=== PATIENT | male | born 1965 | race Caucasian/White ===

== ENCOUNTER 2022-08-13 07:24 | Day surgery (SDC) | payer BC ==
[2022-08-05 15:25] LABS: BASOPHILS # (AUTO) 0.1 X10'3 (0-0.2); BASOPHILS % (AUTO) 1.2 % (0-1); EOSINOPHILS # (AUTO) 0.5 X10'3 (0-0.9); EOSINOPHILS % (AUTO) 5.6 % (0-6); LYMPHOCYTES # (AUTO) 0.8 X10'3 (1.1-4.8); LYMPHOCYTES % (AUTO) 9.2 % (21-51); MEAN CORPUSCULAR HEMOGLOBIN 28.2 PG (27.0-31.0); MEAN CORPUSCULAR HGB CONC 32.8 g/dL (33.0-36.5); MEAN PLATELET VOLUME 8.6 FL (7.4-10.4); MONOCYTES # (AUTO) 0.8 X10'3 (0-0.9); MONOCYTES % (AUTO) 8.8 % (2-12); NEUTROPHILS # (AUTO) 6.7 X10'3 (1.8-7.7); NEUTROPHILS % (AUTO) 75.2 % (42-75); PRE OP HEMATOCRIT 44.6 % (42.0-52.0); PRE OP HEMOGLOBIN 14.6 g/dL (14.0-17.9); PRE OP PLATELET COUNT 216 X10'3 (140-440); RED BLOOD COUNT 5.19 X10'6 (4.70-6.10); RED CELL DISTRIBUTION WIDTH 15.4 % (11.5-14.5)
[2022-08-05 15:42] LABS: ALBUMIN 3.2 G/DL (3.4-5.0); ALBUMIN/GLOBULIN RATIO 0.9 (1.1-1.5); ALKALINE PHOSPHATASE 123 IU/L (46-116); BLOOD UREA NITROGEN 50 MG/DL (7-18); BUN/CREATININE RATIO 24.6 (10.0-20.0); CALCIUM 8.8 MG/DL (8.5-10.1); CHLORIDE 107 MMOL/L (99-107); CREATININE 2.03 MG/DL (0.60-1.10); PRE OP ALT 30 U/L (30-65); PRE OP ANION GAP 10 (8-16); PRE OP AST 27 U/L (10-37); PRE OP BILIRUB, TOTAL 0.5 MG/DL (0.0-1.0); PRE OP GLUCOSE 112 MG/DL (70-104); PRE OP POTASSIUM 4.7 MMOL/L (3.4-5.1); PRE OP SODIUM 144 MMOL/L (135-145); TOTAL PROTEIN 6.7 G/DL (6.4-8.2); eGFR 34 ML/MIN
[~2022-08-13] VITALS: Ht 167.6 cm; Wt 148.2 kg
[~2022-08-13 07:24] MED LIST: APIX5TAB3 PO; CARV25TA3 PO; DOCUMENT DATE & TIME OF BETA-BLOCKER PO ONE; FURO80TA3 PO; INSU100V13 SQ; POTA-366 PO; SACU1TAB4 PO; ceFAZolin inj. 3,000 MG in normal saline 100ml IV soln 100 ML IV ONE; famotidine 20mg tablet PO ONE; ringers solution, lacted 1,000 ML IV SCH
[2022-08-13 07:30] VITALS: BP 126/80
[2022-08-13] MEDS ORDERED: labetalol 20mg/4ml (5mg/ml) syringe IV PRN (09:25)
[2022-08-13] MEDS ORDERED: meperidine/PF 25mg/ml syringe IV PRN ×3 (09:25)
[2022-08-13] MEDS ORDERED: proCHLORperazine 10 MG/2 ml inj IV PRN (09:25)
[2022-08-13] MEDS ORDERED: ondansetron/PF 4mg/2ml inj IV PRN (09:25)
[2022-08-13] MEDS ORDERED: hydrALAZINE 20mg/ml inj. IV PRN (09:25)
[2022-08-13] MEDS ORDERED: morphine 2 MG/ML inj. syringe IV PRN (09:25)
[2022-08-13] MEDS ORDERED: ringers solution, lacted 1,000 ML IV SCH (09:25)
[2022-08-13] MEDS ORDERED: acetaminophen 1,000mg/100ml IV 100 ML IV PRN (09:25)
[2022-08-13] MEDS ORDERED: morphine 4 MG/ML inj SYRINge IV PRN (09:25)
[2022-08-13] MEDS ORDERED: fentaNYL/PF 50MCG/1 ML 2ML syringe ONE (10:17)
[2022-08-13] MEDS ORDERED: BUPIVAcaine/PF 2.5mg/ml (0.25%) 10ml vial ONE (10:33)
[2022-08-13] MEDS ORDERED: LIDOcaine 0.5% (5mg/ml) 50ml vial ONE ×2 (10:41)
[2022-08-13] MEDS ORDERED: midazolam 1 mg/ML 2ml injection ONE (10:41)
[2022-08-13] MEDS ORDERED: BUPIVAcaine/PF 2.5mg/ml (0.25%) 10ml vial IJ ONE (10:41)
[2022-08-13 10:49] VITALS: BP 167/100
--- NOTE | 2022-08-13 10:49 | NUR ---
Received from OR via [facility], accompanied by Anesthesiologist and report given by ESTHER Anesthesiologist. PATIENT WAKING UP, NO S/S OF PAIN, V/S WNL, PIV 20G TO RIGHT HAND, LEFT WRIST DRESSING C/D/I. ICE AND ELEVATED LUE. Addendum: 08/13/22 at 1059 by Tom Lala RN Amended: Links added.
[2022-08-13 10:50] VITALS: BP 156/89
[2022-08-13 11:00] VITALS: BP 136/81
[2022-08-13 11:10] VITALS: BP 137/77
--- NOTE | 2022-08-13 11:19 | NUR ---
ALL DISCHARGE CRITERIA HAS BEEN MET. VSS, PAIN AT A TOLERABLE LEVEL, ABLE TO SAFELY AMBULATE AND TRANSFER SELF. IV TAKEN OUT WITHOUT ANY COMPLICATIONS. ALL DISCHARGE INSTRUCTIONS COVERED WITH PATIENT AND ALL QUESTIONS ANSWERED. PATIENT TAKEN OUT VIA WHEELCHAIR WITH ALL BELONGINGS TO PERSONAL VEHICLE WHERE FAMILY DROVE PATIENT HOME. Addendum: 08/13/22 at 1127 by Tom Lala RN Amended: Links added.
== END 2022-08-13 11:19 | disposition home or self-care (01) ==
LOC: PAS 07:24
PROVIDERS: ATTEND Orthopaedic Surgery Hand Surgery
DX: G56.02 Carpal tunnel syndrome, left upper limb (principal); I48.91 Unspecified atrial fibrillation; I11.0 Hypertensive heart disease with heart failure; I50.9 Heart failure, unspecified; E11.9 Type 2 diabetes mellitus without complications; M10.9 Gout, unspecified; E66.9 Obesity, unspecified; Z68.43 Body mass index [BMI] 50.0-59.9, adult; Z98.890 Other specified postprocedural states; Z96.41 Presence of insulin pump (external) (internal); Z79.899 Other long term (current) drug therapy; Z79.4 Long term (current) use of insulin; Z88.2 Allergy status to sulfonamides; Z72.89 Other problems related to lifestyle
CPT/HCPCS: 29848; 36415; 80053; 82948; 85025; J0690; J2250; J3010; J3490; J7030; J7120; Z7506; Z7512; A4215; A6449; A7000

== ENCOUNTER 2022-09-24 08:17 | Day surgery (SDC) | payer BC ==
[2022-09-21 16:16] LABS: BASOPHILS # (AUTO) 0.1 X10'3 (0-0.2); BASOPHILS % (AUTO) 0.8 % (0-1); EOSINOPHILS # (AUTO) 0.4 X10'3 (0-0.9); EOSINOPHILS % (AUTO) 4.4 % (0-6); MEAN CORPUSCULAR HEMOGLOBIN 28.5 PG (27.0-31.0); MEAN CORPUSCULAR HGB CONC 33.6 g/dL (33.0-36.5); MEAN CORPUSCULAR VOLUME 84.8 FL (78-98); MEAN PLATELET VOLUME 8.9 FL (7.4-10.4); MONOCYTES # (AUTO) 0.8 X10'3 (0-0.9); MONOCYTES % (AUTO) 8.9 % (2-12); NEUTROPHILS # (AUTO) 6.4 X10'3 (1.8-7.7); NEUTROPHILS % (AUTO) 73.9 % (42-75); PRE OP HEMATOCRIT 44.8 % (42.0-52.0); PRE OP HEMOGLOBIN 15.1 g/dL (14.0-17.9); PRE OP PLATELET COUNT 218 X10'3 (140-440); RED BLOOD COUNT 5.28 X10'6 (4.70-6.10); RED CELL DISTRIBUTION WIDTH 14.5 % (11.5-14.5)
[2022-09-21 16:23] LABS: ALBUMIN 3.3 G/DL (3.4-5.0); ALBUMIN/GLOBULIN RATIO 0.9 (1.1-1.5); ALKALINE PHOSPHATASE 146 IU/L (46-116); BLOOD UREA NITROGEN 45 MG/DL (7-18); BUN/CREATININE RATIO 22.6 (10.0-20.0); CALCIUM 9.1 MG/DL (8.5-10.1); CHLORIDE 105 MMOL/L (99-107); CREATININE 1.99 MG/DL (0.60-1.10); PRE OP ALT 38 U/L (30-65); PRE OP ANION GAP 9 (8-16); PRE OP AST 26 U/L (10-37); PRE OP BILIRUB, TOTAL 0.5 MG/DL (0.0-1.0); PRE OP GLUCOSE 126 MG/DL (70-104); PRE OP POTASSIUM 4.1 MMOL/L (3.4-5.1); PRE OP SODIUM 141 MMOL/L (135-145); TOTAL CARBON DIOXIDE 26.6 MMOL/L (24-32); eGFR 35 ML/MIN
[~2022-09-24] VITALS: Ht 167.6 cm; Wt 138.6 kg
[2022-09-24] VITALS (15 sets, daily range): BP systolic 90–131; BP diastolic 56–72
[~2022-09-24 08:17] MED LIST changes: +BUPIVAcaine/PF 2.5mg/ml (0.25%) 10ml vial ONE; +COLC0.6T72 PO
[2022-09-24] MEDS ORDERED: enalaprilat dihydrate 2.5mg/2ml vial IV PRN (10:10)
[2022-09-24] MEDS ORDERED: ringers solution, lacted 1,000 ML IV SCH (10:10)
[2022-09-24] MEDS ORDERED: morphine 2 MG/ML inj. syringe IV PRN (10:10)
[2022-09-24] MEDS ORDERED: ondansetron/PF 4mg/2ml inj IV PRN (10:10)
[2022-09-24] MEDS ORDERED: morphine 4 MG/ML inj SYRINge IV PRN (10:10)
[2022-09-24] MEDS ORDERED: MIDAZolam 1 MG/ML 5ML VIAL ONE (11:39)
[2022-09-24] MEDS ORDERED: fentaNYL/PF 50MCG/1 ML 2ML syringe ONE ×3 (11:39→12:26)
[2022-09-24] MEDS ORDERED: BUPIVAcaine/PF 2.5mg/ml (0.25%) 10ml vial IJ ONE (11:45)
[2022-09-24] MEDS ORDERED: midazolam 1 mg/ML 2ml injection ONE ×2 (12:05)
--- NOTE | 2022-09-24 12:40 | NUR ---
Received from OR via [facility], accompanied by DR. ALARCON - anesthesia report given. PATIENT WAKING UP, NO S/S OF PAIN, V/S WNL, 20G TO LUE, WRIST DRESSING RIGHT WRIST- CDI. ICE AND ELEVATED RUE.
--- NOTE | 2022-09-24 13:00 | NUR ---
PT BLOOD SUGAR 182 - NO NEED FOR COVERAGE AT THIS TIME, VSS, PT RESTING QUIETLY
--- NOTE | 2022-09-24 15:00 | NUR ---
PATIENT A&OX4, DENIES PAIN, V/S WNL, 20G TO LUE D/C, RIGHT WRIST DRESSING CDI, CSM PRESENT, ICE AND ELEVATE RUE. I HAVE REVIEWED D/C INSTRUCTIONS WITH PATIENT and they have verbalized understanding, patient d/c home with all belongings and family gave transport home.
== END 2022-09-24 15:00 | disposition home or self-care (01) ==
LOC: PAS 08:17
PROVIDERS: ATTEND Orthopaedic Surgery Hand Surgery
DX: M10.041 Idiopathic gout, right hand (principal); I48.91 Unspecified atrial fibrillation; E11.22 Type 2 diabetes mellitus with diabetic chronic kidney disease; I13.0 Hypertensive heart and chronic kidney disease with heart failure and stage 1 through stage 4 chronic kidney disease, or unspecified chronic kidney disease; N18.9 Chronic kidney disease, unspecified; I50.9 Heart failure, unspecified; E66.01 Morbid (severe) obesity due to excess calories; Z68.42 Body mass index [BMI] 45.0-49.9, adult; M17.0 Bilateral primary osteoarthritis of knee; Z88.2 Allergy status to sulfonamides; Z98.890 Other specified postprocedural states; Z79.899 Other long term (current) drug therapy; Z79.4 Long term (current) use of insulin; Z72.89 Other problems related to lifestyle
CPT/HCPCS: 26860; 26861; 36415; 80053; 82948; 85025; C1713; J0690; J2250; J3010; J3490; J7030; J7040; J7120; Z7506; Z7508; Z7512; A4215; A4618; A7000